=== PATIENT | female | born 1940 | race Caucasian/White ===

== ENCOUNTER → 2019-11-30 | Outpatient (CLI) | payer MEDICARE ==
[2019-08-20 11:00] VITALS: BP 134/59
[~2019-11-30] MED LIST: APIX5TAB PO; ASPI-630 PO; ATEN25TA PO; CALC-109 PO; CALCIT; CARB1TAB22 PO; CARB1TAB44 PO; CHOL200059 PO; DIPH25CA58 PO; DOCU100T5 PO; HYDR-2145 PO; HYDR50TA6 PO; LOVA40TA2 PO; MULTIVITAMIN; NAPR-695 PO; PANT40TA77 PO; VIT D; [UNRECOGNIZED DRUG - OTHER]; [UNRECOGNIZED DRUG - OTHER]
--- NOTE | 2019-11-30 17:06 | KCIC ---
PROCEDURE: HIP BILATERAL WITH PELVIS STUDY DATE: 11/30/2019 CLINICAL INDICATION / HISTORY: Reason: CHRONIC PAIN BILAT HIPS, HX OF FALLS IN PAST, NO RECENT INJURY / Spl. Instructions: / History: . TECHNIQUE:AP and frog-leg lateral views of both hips were obtained COMPARISON: No relevant comparisons currently available. FINDINGS: The osseous structures are normally mineralized for a. There is normal bony alignment present with the femoral heads well-seated within the acetabuli. There is no evidence of acute fracture or dislocation identified. There is bilateral hip joint space narrowing and osteophytic spurring at the femoral heads compatible with degenerative change. IMPRESSION: Bilateral femoral head degenerative changes. No fracture or dislocation noted. Electronically signed by: Ketty Smart MD (11/30/2019 5:03 PM) [id number]
== END | disposition home or self-care (01) ==
LOC: KCIC 14:35
PROVIDERS: ATTEND Family Medicine
DX: M16.0 Bilateral primary osteoarthritis of hip (principal); M76.892 Other specified enthesopathies of left lower limb, excluding foot; M76.891 Other specified enthesopathies of right lower limb, excluding foot; G89.29 Other chronic pain
CPT/HCPCS: 73521

== ENCOUNTER → 2020-12-06 | Outpatient (CLI) | payer MEDICARE ==
[2019-08-20 11:00] VITALS: BP 134/59
[~2020-12-06] MED LIST changes: -HYDR50TA6 PO; +HYDR50TA9 PO
--- NOTE | 2020-12-06 08:59 | KCIC ---
EXAM: Lower extremity arterial Doppler sonogram with ankle-brachial indices (VERONICA). HISTORY: Pedal edema. Decreased pulses. Peripheral vascular disease. Atherosclerosis. TECHNIQUE: Doppler sonographic evaluation of the lower extremities was performed and pressure reading s were assessed. FINDINGS: Right brachial pressure: 113 mmHg Left brachial pressure: 112 mmHg Right ankle pressure (dorsalis pedis): 123 mmHg Right ankle pressure (posterior tibial): 120 mmHg Right VERONICA: 1.09 Left ankle pressure (dorsalis pedis): 117 mmHg Left ankle pressure (posterior tibial): 119 mmHg Left VERONICA: 1.05 There are biphasic and triphasic waveforms throughout the lower extremity arteries. There are normal peak systolic velocities within the right common femoral and mid superficial femoral artery. IMPRESSION: 1. Normal ankle-brachial indices. 2. No evidence of severe stenosis or occlusion involving the lower extremity arteries. Electronically signed by: Otilia Landry MD (12/06/2020 8:57 AM) [id number]
== END ==
LOC: KCIC US 07:57
PROVIDERS: ATTEND Family Medicine
DX: R60.0 Localized edema (principal); I73.9 Peripheral vascular disease, unspecified
CPT/HCPCS: 93922; 93925